=== PATIENT | female | born 1965 | race Caucasian/White ===

== ENCOUNTER → 2018-05-13 | Outpatient (CLI) | payer OTHER ==
[~2018-05-13] MED LIST: ABILIFY20 MG PO; ATIVAN PO; BIOTIN1 MG PO; COGENTIN PO; CONCERTA54 MG PO; DIATRIZOATE MEGL/DIATRIZOA SOD 30 ML BTL PO ONE; DITROPAN PO; EFFEXOR PO; FAMOTIDINE40 MG PO; FENOFIBRATE160 MG PO; FLUCONAZOLE PO; IOPAMIDOL 370 MG/ML 200 ML INFUS..BTL INJ ONE; IRON PO; JUNEL FE 1 MG-1 EACH PO; KLONOPIN0.5 MG PO; LAMICTAL200 MG PO; LIBRAX CAPSULE1 EACH PO; LISINOPRIL30 MG PO; MECLIZINE HCL25 MG PO; MULTI-VITAMIN1 EACH PO; NORCO 5-325 TA1 EACH PO; PANTOPRAZOLE SO40 MG PO; PRAVASTATIN SOD40 MG PO; PREDNISONE10 MG PO; REGLAN10 MG PO; RESTASIS1 EACH OU; SKELAXIN800 MG PO; SODIUM CHLORIDE 0.9% 50ML 50 ML ONE; VITAMIN B-12250 MCG PO
[2018-05-13 17:33] LABS: BLOOD UREA NITROGEN 7 mg/dL (7-26); BUN/CREATININE RATIO 9 (6-25); CREATININE, SERUM 0.82 mg/dL (0.57-1.11); EST GLOMERULAR FILTRATION RATE > 60 ML/MIN (60-)
--- NOTE | 2018-05-13 20:52 | Diagnostic Imaging Report ---
PROCEDURE: CT ABDOMEN AND PELVIS WITH CONTRAST TECHNIQUE: The abdomen and pelvis were scanned utilizing a multidetector helical scanner from the diaphragm to the lesser trochanter after the IV administration of 100 cc of Isovue 370 and the oral administration of dilute Gastrografin. Coronal and sagittal multiplanar reformations were obtained. COMPARISON: None. INDICATIONS: LEFT ABD PAIN FINDINGS: LOWER THORAX: Unremarkable HEPATOBILIARY: Decreased attenuation of the hepatic parenchyma compared of the spleen, consistent with steatosis. Mild hepatomegaly, measuring 18.6 cm in the right midclavicular line. Normal contour. No focal lesions. No biliary ductal dilation. Gallbladder is unremarkable. SPLEEN: No splenomegaly. PANCREAS: No focal masses or ductal dilatation. ADRENALS: No adrenal nodules. KIDNEYS/URETERS: No hydronephrosis, stones, or solid mass lesions. PELVIC ORGANS/BLADDER: Bladder is unremarkable. Multilobulated uterus with multiple peripherally enhancing lesions, likely representing fibroids. No adnexal masses. PERITONEUM / RETROPERITONEUM: No free air or fluid. LYMPH NODES: No lymphadenopathy. VESSELS: Celiac trunk, superior and inferior mesenteric, and bilateral renal arteries are patent. Portal, superior mesenteric, and splenic veins are patent. GI TRACT: No bowel dilation or evidence of obstruction. No pericolonic inflammatory changes. BONES AND SOFT TISSUES: No aggressive lytic lesions. Soft tissues are unremarkable. IMPRESSION: 1. No acute abdominopelvic abnormalities. Specifically, no acute abnormal findings in the left abdomen to explain the patient's pain. 2. Mild hepatomegaly with diffuse steatosis. No focal lesions. 3. Findings in the uterus consistent with multiple fibroids. These may be further assessed with transvaginal ultrasound. Daljit Bennett M.D. Dictated by: Daljit Bennett M.D. on 05/13/2018 at 18:57 Electronically approved by: Daljit Bennett M.D. on 05/13/2018 at 18:57
== END ==
LOC: CT 16:43
PROVIDERS: ATTEND Internal Medicine Gastroenterology
DX: R10.9 Unspecified abdominal pain (principal)
CPT/HCPCS: 36415; 74177; 82565; 84520; Q9967

== ENCOUNTER → 2022-11-22 | Outpatient (CLI) | payer BC ==
[~2022-11-22] MED LIST changes: +ACIDOPHILUS1 EAC1 PO; +CHROMIUM PICO400 MCG; +CHROMIUM400 MCG; +CITRACAL SOFT1 EACH; +DEXILANT60 MG; -DIATRIZOATE MEGL/DIATRIZOA SOD 30 ML BTL PO ONE; +FLUVOXAMINE MA100 MG PO; +FOLIC ACID; +GLUCOSAMINE &1 EACH; +GLYCINE; +HYDROCODON-ACE1 EA12 PO; +IMODIUM A-1 MG/7.5 M PO; -IOPAMIDOL 370 MG/ML 200 ML INFUS..BTL INJ ONE; +KETAMINE H50 MG/1 ML PO; +L-THEANINE200 MG; +LATUDA40 MG; +LOSARTAN POTASS25 MG PO; +MAG-AMIDE SR 51 EACH; +MIRAPEX0.25 MG PO; +MORINGA; +N-ACETYL-L-CYS600 MG; +PREVACID15 M1; +RITALIN20 MG PO; -SODIUM CHLORIDE 0.9% 50ML 50 ML ONE; +TROSPIUM CHLORI20 MG; +UNISOM50 MG PO; +VITAMIN B6100 MG/2.5; +VITAMIN C500 MG PO; +VITAMIN D32400 UNIT/; +VITAMIN E400 UNI5
== END ==
LOC: RAD 14:28
PROVIDERS: ATTEND Neurological Surgery
DX: M50.20 Other cervical disc displacement, unspecified cervical region (principal); M43.20 Fusion of spine, site unspecified
CPT/HCPCS: 72050

== ENCOUNTER 2023-04-09 12:43 | Outpatient (RCR) | payer BC | END 2023-04-10 | LOC: PT 12:43 | PROVIDERS: ATTEND Neurological Surgery | DX: M50.823 Other cervical disc disorders at C6-C7 level (principal) ==

== ENCOUNTER 2023-05-07 13:59 | Outpatient (RCR) | payer BC | END 2023-05-10 | LOC: PT 13:59 | PROVIDERS: ATTEND Neurological Surgery | DX: M50.823 Other cervical disc disorders at C6-C7 level (principal) ==